=== PATIENT | female | born 1985 | race African-American/Black ===

== ENCOUNTER 2018-05-03 11:25 | Inpatient (IN) | payer MEDICARE, OTHER ==
[~2018-05-03] VITALS: Ht 165.1 cm; Wt 54.3 kg
[2018-05-03 11:32] VITALS: BP 119/78; PULSE 68; RESP 18; O2SAT 99
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
[2018-05-03] MEDS ORDERED: HALOPERIDOL LACTATE 5 MG/ML AMP IM ONE (12:15)
[2018-05-03 13:00] VITALS: BP 111/71; PULSE 78; RESP 20; TEMP 98.2; O2SAT 98
[2018-05-03 15:31] LABS: AUTOMATED NEUTROPHIL # 3.8 TH/MM3 (1.8-7.7); BASOPHIL % 0.3 % (0.0-2.0); EOSINOPHIL % 0.5 % (0.0-4.0); HEMATOCRIT 35.5 % (35.0-46.0); HEMOGLOBIN 11.5 GM/DL (11.6-15.3); LYMPH % 26.6 % (9.0-44.0); LYMPHOCYTE # 1.6 TH/MM3 (1.0-4.8); MEAN CELL VOLUME 93.5 FL (80.0-100.0); MEAN CORPUSCULAR HEMOGLOBIN 30.3 PG (27.0-34.0); MEAN CORPUSCULAR HGB CONC 32.4 % (32.0-36.0); MEAN PLATELET VOLUME 10.6 FL (7.0-11.0); MONO % 11.3 % (0.0-8.0); MONOCYTE # 0.7 TH/MM3 (0-0.9); NEUT % 61.3 % (16.0-70.0); PLATELET COUNT 176 TH/MM3 (150-450); RED CELL DISTRIBUTION WIDTH 13.5 % (11.6-17.2); WHITE BLOOD COUNT 6.1 TH/MM3 (4.0-11.0)
[2018-05-03 15:50] LABS: ALBUMIN 3.4 GM/DL (3.4-5.0); ALT (GPT) 23 U/L (10-53); AST (GOT) 29 U/L (15-37); BICARBONATE 22.5 MEQ/L (21.0-32.0); BLOOD UREA NITROGEN 27 MG/DL (7-18); CALCIUM 8.5 MG/DL (8.5-10.1); CHLORIDE 111 MEQ/L (98-107); GLOMERULAR FILTRATION RATE 70 ML/MIN (>89); GLUCOSE,RANDOM 82 MG/DL (74-106); SODIUM (NA) 143 MEQ/L (136-145)
[2018-05-03 16:01] LABS: ALKALINE PHOSPHATASE 64 U/L (45-117); TOTAL BILIRUBIN ADULT 0.3 MG/DL (0.2-1.0); TOTAL PROTEIN 7.3 GM/DL (6.4-8.2)
[2018-05-03 16:10] LABS: ACETAMINOPHEN LESS THAN 2.0 MCG/ML (10.0-30.0)
[2018-05-03] MEDS ORDERED: POTASSIUM CHLORIDE 10 MEQ CONTROLLED RELEASE TAB PO ONE (16:45)
[2018-05-03 18:00] VITALS: BP 105/73; PULSE 69; RESP 18
[2018-05-04 00:55] VITALS: BP 129/63; PULSE 80; RESP 16; TEMP 98.7; O2SAT 99
[2018-05-04 06:24] VITALS: BP_SYST 118; BP_SYST 130; BP_DIAS 62; BP_DIAS 81; PULSE 56; PULSE 70; RESP 16; TEMP 97.3; TEMP 97.6; O2SAT 98; O2SAT 99
[2018-05-04 11:00] VITALS: BP 125/79; PULSE 90; RESP 18; TEMP 97.9; O2SAT 96
--- NOTE | 2018-05-04 12:25 | PD ---
History of Present Illness Chief Complaint: Psychiatric Symptoms Time Seen by Provider: 11:50 Travel History International Travel<30 Days: No Contact w/Intl Traveler<30days: No Known affected area: No Legal Status Legal Status: Montes Act Montes Act Signed By: Stacey Villalpando Montes Act Comment: Officer Yuri Gracia #[id number] History of Present Illness: History of Present Illness HPI Patient is a 32-year-old female with reported hx of schizophrenia presenting to the emergency department under Montes act for psychiatric evaluation. Per the Montes act report "patient is bipolar, schizophrenic, she has been hallucinating and having delirium. Patient has been off of her medications for about a month, patient was found this morning eating her own feces" . XOCHILT Sullivan spoke with from patient's friend who reported she found the patient in a tub covered in dried feces. The patient upon arrival to [facility] has been yelling and responding to interna stimuli. She required ETO. This morning the patient required assistance from staff as she had urinated on herself. She is alert. Easily distracted. Responding to internal stimuli although she denies that she is hearing voices. She has lability of affect and starts laughing in the middle of our conversation. Her speech is fast. Non sensical and difficult to understand. PFSH Past Medical History Bipolar Disorder: Yes Schizophrenia: Yes ?: Unknown Psychiatric History Psychiatric History Hx Psychiatric Treatment: Unknown. Yanet has been seen at [facility] and last visit in June of 2017. History of Inpatient Treatment: Yes Guns or firearms in home: No Social History Unable to obtain. Hx Alcohol Use: No (unknown) Hx Tobacco Use: No Family Psychiatric History Unknown Allergies-Medications (Allergen,Severity, Reaction): Coded Allergies: No Known Allergies (Unverified , 05/03/18) Review of Systems ROS Limitations: Psychotic Mental Status Examination Appearance: Malodorous, Other (dirty.) Consciousness: Alert Orientation: Person Motor Activity: Normal gait Speech: Rapid Language: Echolalia Fund of Knowledge: Inadequate Attention and Concentration: Inadequate Memory: Unremarkable, Impaired Mood: Other (labile) Affect: Labile Thought Process & Associations: Disorganized Thought Content: Hallucinations Hallucination Type: Auditory Delusion Type: None Suicidal Ideation: No Suicidal Plan: No Suicidal Intention: No Homicidal Ideation: No Homicidal Plan: No Homicidal Intention: No Insight: Poor Judgment: Poor MDM Medical Decision Making Medical Record Reviewed: Yes Assessment/Plan 32 year old female with hx of schizophrenia brought in under a BA after she was found in a bathtub covered in feces and alleging that she was hallucinating and having delirium, as well as reported to have been off medication for a month. Patient presents with disorganized thoughts, actively responding to interna stimuli, lability of affect, and not caring for herself. At this time meets criteria for inpatient psychiatric treatment for safety, further evaluation and medication adjustment. Orders Orders Diet Regular Basic (05/03/18 Dinner) Potassium Chloride (Kcl) (05/03/18 16:45) Diet Regular Basic (05/04/18 Breakfast) Diet Regular Basic (05/04/18 Lunch) Ed Urine Pregnancytest Poc (05/04/18 11:47) Results Vital Signs Date Time Temp Pulse Resp B/P (MAP) Pulse Ox O2 Delivery O2 Flow Rate FiO2 05/04/18 06:24 97.6 70 16 118/62 (80) 98 Room Air 05/04/18 00:55 98.7 80 16 129/63 (85) 99 Room Air 05/03/18 18:00 69 18 105/73 (84) 05/03/18 13:00 98.2 78 20 111/71 (84) 98 Room Air Laboratory Tests Test 05/03/18 14:50 White Blood Count 6.1 Red Blood Count 3.80 Hemoglobin 11.5 Hematocrit 35.5 Mean Corpuscular Volume 93.5 Mean Corpuscular Hemoglobin 30.3 Mean Corpuscular Hemoglobin Concent 32.4 Red Cell Distribution Width 13.5 Platelet Count 176 Mean Platelet Volume 10.6 Neutrophils (%) (Auto) 61.3 Lymphocytes (%) (Auto) 26.6 Monocytes (%) (Auto) 11.3 Eosinophils (%) (Auto) 0.5 Basophils (%) (Auto) 0.3 Neutrophils # (Auto) 3.8 Lymphocytes # (Auto) 1.6 Monocytes # (Auto) 0.7 Eosinophils # (Auto) 0.0 Basophils # (Auto) 0.0 CBC Comment DIFF FINAL Differential Comment Blood Urea Nitrogen 27 Creatinine 1.10 Random Glucose 82 Total Protein 7.3 Albumin 3.4 Calcium Level 8.5 Alkaline Phosphatase 64 Aspartate Amino Transf (AST/SGOT) 29 Alanine Aminotransferase (ALT/SGPT) 23 Total Bilirubin 0.3 Sodium Level 143 Potassium Level 3.2 Chloride Level 111 Carbon Dioxide Level 22.5 Anion Gap 10 Estimat Glomerular Filtration Rate 70 Thyroid Stimulating Hormone 3rd Gen 2.720 Salicylates Level LESS THAN 1.7 Acetaminophen Level LESS THAN 2.0 Ethyl Alcohol Level LESS THAN 3 Diagnosis Primary Impression: Medical clearance for psychiatric admission Additional Impression: Schizophrenia Admitting Information Admitting Physician Requests: Admit Condition: Stable Problem Qualifiers Additional Impression: Schizophrenia Qualified Codes: F20.9 - Schizophrenia, unspecified Conchita Saucedo [facility] May 04, 2018 12:25
[2018-05-04] MEDS ORDERED: ALUMINUM/MAGNESIUM/SIMETH 30 ML CUP PO PRN (12:30)
[2018-05-04] MEDS ORDERED: MAGNESIUM HYDROXIDE SUSP 30 ML CUP PO PRN (12:30)
[2018-05-04] MEDS ORDERED: ACETAMINOPHEN 325 MG TAB PO PRN (12:30)
[2018-05-04 15:02] VITALS: BP 118/75; PULSE 82; RESP 16; TEMP 98.2; O2SAT 99
[2018-05-05 06:04] VITALS: BP 111/72; PULSE 81; RESP 16; TEMP 98.1; O2SAT 98
--- NOTE | 2018-05-05 08:54 | HHI.HP ---
Provisional Diagnosis Admission Date May 04, 2018 at 12:28 [place] I. 1. Schizophrenia, disorganized type, acute exacerbation Rule out catatonia [place] II. 1. Intellectual disability Certification of Person's Competence To Provide Express and Informed Consent I have personally examined Bela Pérez , a person being served at [facility] on, May 05, 2018 08:54. Express and informed consent means consent voluntarily given in writing, by a competent person, after sufficient explanation and disclosure of the subject matter involved to enable the person to make a knowing and willful decision without any element of force, fraud, deceit, duress, or other form of constraint or coercion. This person is 18 years of age or older, is not now known to be incompetent to consent to treatment with a guardian advocate, and does not have a health care surrogate or proxy currently making medical treatment decisions. I have found this person to be one of the following: [] Competent to provide express and informed consent, as defined above, for voluntary admission to this facility and is competent to provide express and informed consent for treatment. He/she has the consistent capacity to make well reasoned, willful, and knowing decisions concerning his or her medical or mental health treatment. The person fully and consistently understands the purpose of the admission for examination/placement and is fully capable of personally exercising all rights [place] [x] Incompetent to provide express and informed consent to voluntary admission, and this is incompetent to provide express and informed consent to treatment. The person must be transferred to involuntary status and a petition for a guardian advocate filed with the Circuit Court. [] Refusing to provide express and informed consent to voluntary admission but is competent to provide express and informed consent for treatment. The person must be discharged or transferred to involuntary status. Form shall be completed within 24 hours of a person's arrival at the receiving facility and filed in the clinical record of each person: 1. Admitted on a voluntary basis 2. Permitted to provide express and informed consent to his/her own treatment 3. Allowed to transfer from involuntary to voluntary status 4. Prior to permitting a person to consent to his or her own treatment after having been previously found incompetent to consent to treatment. History of Present Illness Capacity: Lacks Capacity Psych Chief Complaint: Disorganization, self-care deficit HPI Ms. Pérez is a 32-year-old female with a history of schizophrenia and intellectual disability who presents under a Montes act by law enforcement alleging that the patient has been nonadherent with psychotropic medications and was found eating her own feces. Reviewing the electronic medical record, I note that the patient has another record under the name Teresa Pérez (same ). In this record, patient was admitted under Dr. Knight in January, and was on Haldol and Abilify at that time. Patient seen and examined with nurse. Chart reviewed. Case discussed with nursing staff who reports patient slept poorly overnight and has been internally stimulated, rocking in her room. On my examination today, patient is mute. She follows commands but will not engage in verbal interview. She does exhibit some posturing but no stereotypies. She is able to nod head yes or no to some questions. She denies AH but is non-committal about VH. Likewise , she denies SI but does not respond when I ask about HI. Psychiatric interview is quite limited because of patient's current mental state. I am unable to obtain any meaningful past psychiatric, family, chemical dependency or social history for the same reason. Patient appears to be in no acute physical distress. Endeavored to obtain collateral from brother Austin Lee at [phone] (left generic requesting a call back) and at [phone] (seems to be a wrong number as VM is for completely different person). Also endeavored to obtain collateral from sister Jef at [phone] (VM not set up). Called over to [facility] to obtain most recent med list. As of June 2017 (last available): Haldol 10mg BID Artane 5mg BID Review of Systems ROS Limitations: Psychotic, Poor Historian, Other (mute) Other Limited ROS secondary to above Past Family Social History Coded Allergies: No Known Allergies (Unverified , 05/03/18) Past Medical History See electronic medical record Current Medications Medications (Trade) Dose Ordered Sig/Hardy Route Start Time Stop Time Status Last Admin (Tylenol) 650 mg Q4H PRN PO 05/04/18 12:30 (Milk Of Magnesia Liq) 30 ml DAILY PRN PO 05/04/18 12:30 (Mag-Al Plus Susp Liq) 30 ml Q6H PRN PO 05/04/18 12:30 Patient's Strengths (min. 2) In a monitored setting. Retains some communication ability. Physical Exam Physical exam completed by ED provider. On my examination today, the patient appears to be in no acute physical distress. She does exhibit some posturing and is mute but no other signs of catatonia. No other motor abnormalities noted. Labs and vital signs reviewed: Vital Signs Vital Signs Date Time Temp Pulse Resp B/P (MAP) Pulse Ox O2 Delivery O2 Flow Rate FiO2 05/05/18 06:04 98.1 81 16 111/72 (85) 98 05/04/18 11:00 Room Air Lab Results Item Value Date Time White Blood Count 6.1 TH/MM3 05/03/18 1450 Hemoglobin 11.5 GM/DL L 05/03/18 1450 Platelet Count 176 TH/MM3 05/03/18 1450 Sodium Level 143 MEQ/L 05/03/18 1450 Potassium Level 3.2 MEQ/L L 05/03/18 1450 Chloride Level 111 MEQ/L H 05/03/18 1450 Carbon Dioxide Level 22.5 MEQ/L 05/03/18 1450 Anion Gap 10 MEQ/L 05/03/18 1450 Blood Urea Nitrogen 27 MG/DL H 05/03/18 1450 Creatinine 1.10 MG/DL H 05/03/18 1450 Estimat Glomerular Filtration Rate 70 ML/MIN L 05/03/18 1450 Aspartate Amino Transf (AST/SGOT) 29 U/L 05/03/18 1450 Alanine Aminotransferase (ALT/SGPT) 23 U/L 05/03/18 1450 Thyroid Stimulating Hormone 3rd Gen 2.720 uIU/ML 05/03/18 1450 Alkaline Phosphatase 64 U/L 05/03/18 1450 Ethyl Alcohol Level LESS THAN 3 MG/DL 05/03/18 1450 Mild normocytic anemia noted. Hypokalemia noted. Decreased GFR noted. ED point of care test was negative. EKG NSR QTc 400ms. Mental Status Examination Appearance: Disheveled Consciousness: Alert Motor Activity: Other (Motor exam as above) Speech: Other (Mute) Affect: Other (Appears dysphoric) Hallucination Type: Auditory (Denies), Visual (Noncommittal) Suicidal Ideation: No Insight: Poor Judgment: Poor Mental Status Exam Remarks MSE quite limited as patient is mute. Assessment & Plan Problem List: (1) Schizophrenia ICD Codes: F20.9 - Schizophrenia, unspecified Status: Acute (2) Intellectual disability ICD Codes: F79 - Unspecified intellectual disabilities Assessment & Plan 32-year-old female with psychiatric history as detailed above who presents under Montes act. On my examination today, the patient is mute and exhibits some posturing. Montes act alleges medication nonadherence. Differential diagnosis would include severe decompensated disorganized schizophrenia versus catatonic state. Patient exhibits obvious self-care deficit and requires psychiatric hospitalization for safety, observation and stabilization. Admit inpatient. Involuntary status. I have completed first opinion. Consult for second opinion. Request healthcare surrogate and guardian advocate. Scheduled psychotropics cannot be ordered at this time as we have no available healthcare surrogate. I will order Ativan 2mg IM once for possible catatonia and reassess patient. Monitor PO intake; I&Os. Check CBC, BMP, CK, HgbA1c, lipid panel. Vitals every shift. Counselor to see. Collateral information. Disposition planning. Estimated length of stay: 10-14 days. Discharge Planning Pending psychiatric stabilization Request HC Surrog/Guard Advoc?: Yes Problem Qualifiers (1) Schizophrenia: Qualified Codes: F20.1 - Disorganized schizophrenia Dwaine Garcia MD May 05, 2018 08:54
[2018-05-05] MEDS ORDERED: LORazepam 2 MG/ML VIAL IM ONE (14:15)
--- NOTE | 2018-05-05 15:16 | EKG ---
Date Performed: 05/05/2018 Time Performed: 10:56:50 PTAGE: 32 years EKG: Sinus rhythm NORMAL ECG NO PREVIOUS TRACING DOCTOR: Marion Elizondo Interpretating Date/Time 05/05/2018 15:15:33
[2018-05-05 18:06] VITALS: BP 115/64; PULSE 70; RESP 17; TEMP 97.7; O2SAT 99
[2018-05-06 05:42] VITALS: BP 102/70; PULSE 72; RESP 16; TEMP 97.9; O2SAT 100
[2018-05-06 09:16] LABS: BASOPHIL % 0.4 % (0.0-2.0); EOSINOPHIL # 0.1 TH/MM3 (0-0.4); EOSINOPHIL % 1.5 % (0.0-4.0); HEMATOCRIT 39.2 % (35.0-46.0); HEMOGLOBIN 12.7 GM/DL (11.6-15.3); LYMPH % 25.6 % (9.0-44.0); LYMPHOCYTE # 1.2 TH/MM3 (1.0-4.8); MEAN CELL VOLUME 92.9 FL (80.0-100.0); MEAN CORPUSCULAR HEMOGLOBIN 30.1 PG (27.0-34.0); MEAN CORPUSCULAR HGB CONC 32.4 % (32.0-36.0); MEAN PLATELET VOLUME 10.2 FL (7.0-11.0); MONO % 9.9 % (0.0-8.0); MONOCYTE # 0.5 TH/MM3 (0-0.9); NEUT % 62.6 % (16.0-70.0); PLATELET COUNT 188 TH/MM3 (150-450); RED BLOOD COUNT 4.22 MIL/MM3 (4.00-5.30); RED CELL DISTRIBUTION WIDTH 13.7 % (11.6-17.2); WHITE BLOOD COUNT 4.9 TH/MM3 (4.0-11.0)
[2018-05-06 09:53] LABS: BICARBONATE 28.4 MEQ/L (21.0-32.0); BLOOD UREA NITROGEN 18 MG/DL (7-18); CALCIUM 8.6 MG/DL (8.5-10.1); CHLORIDE 109 MEQ/L (98-107); CHOLESTEROL 128 MG/DL (120-200); CHOLESTEROL/ HDL RATIO 2.03 RATIO; CREATININE 0.92 MG/DL (0.50-1.00); GLOMERULAR FILTRATION RATE 86 ML/MIN (>89); GLUCOSE,RANDOM 77 MG/DL (74-106); HDL CHOLESTEROL 62.9 MG/DL (40.0-60.0); LDL CHOLESTEROL 50 MG/DL (0-99); SODIUM (NA) 145 MEQ/L (136-145); TRIGLYCERIDES 78 MG/DL (42-150)
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
--- NOTE | 2018-05-06 13:05 | PD.PSY.CON ---
Provisional Diagnosis Admission Date May 04, 2018 at 12:28 [place] I. 1. Schizophrenia, disorganized type, acute exacerbation Rule out catatonia [place] II. 1. Intellectual disability History of Present Illness Service Psychiatry Consult Requested By Psychiatry Reason for Consult Second opinion Primary Care Physician Unknown HPI Ms. Pérez is a 32-year-old female with a history of schizophrenia and intellectual disability who presents under a [place] act by law enforcement alleging that the patient has been nonadherent with psychotropic medications and was found eating her own feces. Reviewing the electronic medical record, I note that the patient has another record under the name Teresa Pérez (same ). In this record, patient was admitted under Dr. Knight in January, and was on Haldol and Abilify at that time.Patient seen and examined with nurse. Chart reviewed. Case discussed with nursing staff who reports patient slept poorly overnight and has been internally stimulated, rocking in her room. On my examination today, patient is mute. She follows commands but will not engage in verbal interview. She does exhibit some posturing but no stereotypies. She is able to nod head yes or no to some questions. She denies AH but is non-committal about VH. Likewise, she denies SI but does not respond when I ask about HI. Psychiatric interview is quite limited because of patient' s current mental state. I am unable to obtain any meaningful past psychiatric, family, chemical dependency or social history for the same reason. Patient appears to be in no acute physical distress. The patient is a 32-year-old -[place] woman, domiciled in [facility], single, mother of 1 kid, unemployed, with psychiatric history of schizophrenia, no significant medical history, she denies the use of illegal drugs and alcohol , consulted to me for second opinion. Psychiatric evaluation I find the patient in the recreational area of the unit. The patient is poorly cooperative , malodorous, disheveled, answering to my questions with monosyllables. The patient does report that she wants to feel better, but she does not have an insight of her psychiatric illness, she does not know what is the reason of her hospitalization. She denies suicidal enemas ideation, she denies visual and auditory hallucinations. During the evaluation the patient also presents very childish and concrete. Review of Systems Except as stated in HPI: all other systems reviewed are Neg Past Family Social History Coded Allergies: No Known Allergies (Unverified , 05/03/18) Current Medications Medications (Trade) Dose Ordered Sig/Hardy Route Start Time Stop Time Status Last Admin (Tylenol) 650 mg Q4H PRN PO 05/04/18 12:30 (Milk Of Magnesia Liq) 30 ml DAILY PRN PO 05/04/18 12:30 (Mag-Al Plus Susp Liq) 30 ml Q6H PRN PO 05/04/18 12:30 Patient's Strengths (min. 2) In a monitored setting. Retains some communication ability. Physical Exam Vital Signs Vital Signs Date Time Temp Pulse Resp B/P (MAP) Pulse Ox O2 Delivery O2 Flow Rate FiO2 05/06/18 05:42 97.9 72 16 102/70 (81) 100 05/04/18 11:00 Room Air Lab Results Test 05/06/18 08:46 White Blood Count 4.9 TH/MM3 Red Blood Count 4.22 MIL/MM3 Hemoglobin 12.7 GM/DL Hematocrit 39.2 % Mean Corpuscular Volume 92.9 FL Mean Corpuscular Hemoglobin 30.1 PG Mean Corpuscular Hemoglobin Concent 32.4 % Red Cell Distribution Width 13.7 % Platelet Count 188 TH/MM3 Mean Platelet Volume 10.2 FL Neutrophils (%) (Auto) 62.6 % Lymphocytes (%) (Auto) 25.6 % Monocytes (%) (Auto) 9.9 % Eosinophils (%) (Auto) 1.5 % Basophils (%) (Auto) 0.4 % Neutrophils # (Auto) 3.0 TH/MM3 Lymphocytes # (Auto) 1.2 TH/MM3 Monocytes # (Auto) 0.5 TH/MM3 Eosinophils # (Auto) 0.1 TH/MM3 Basophils # (Auto) 0.0 TH/MM3 CBC Comment DIFF FINAL Differential Comment Blood Urea Nitrogen 18 MG/DL Creatinine 0.92 MG/DL Random Glucose 77 MG/DL Calcium Level 8.6 MG/DL Sodium Level 145 MEQ/L Potassium Level 4.1 MEQ/L Chloride Level 109 MEQ/L Carbon Dioxide Level 28.4 MEQ/L Anion Gap 8 MEQ/L Estimat Glomerular Filtration Rate 86 ML/MIN Total Creatine Kinase 489 U/L Creatine Kinase MB 3.0 NG/ML Creatine Kinase MB % 0.6 % Triglycerides Level 78 MG/DL Cholesterol Level 128 MG/DL LDL Cholesterol 50 MG/DL HDL Cholesterol 62.9 MG/DL Cholesterol/HDL Ratio 2.03 RATIO Mental Status Examination Appearance: Disheveled Consciousness: Alert Motor Activity: Other (Motor exam as above) Speech: Other (Mute) Affect: Other (Appears dysphoric) Hallucination Type: Auditory (Denies), Visual (Noncommittal) Suicidal Ideation: No Insight: Poor Judgment: Poor Assessment & Plan Problem List: (1) Schizophrenia ICD Codes: F20.9 - Schizophrenia, unspecified Status: Acute Assessment & Plan: I have seen and examined the patient, review documentation, I agree and concur with Dr. Garcia assessment and plan. Consult appreciated. (2) Intellectual disability ICD Codes: F79 - Unspecified intellectual disabilities Assessment & Plan Estimated LOS: days Request HC Surrog/Guard Advoc?: Yes Problem Qualifiers (1) Schizophrenia: Qualified Codes: F20.1 - Disorganized schizophrenia Dg Clark MD May 06, 2018 13:05
[2018-05-06 16:07] LABS: HEMOGLOBIN A1C 5.6 % (4.3-6.0)
[2018-05-06 18:05] VITALS: BP 112/64; PULSE 91; RESP 17; TEMP 98; O2SAT 99
[2018-05-06] MEDS: HALOPERIDOL 10 MG TAB PO SCH (20:45)
[2018-05-06] MEDS: TRIHEXYPHENIDYL HCL 5 MG TAB PO SCH (20:45)
[2018-05-06] MEDS ORDERED: HALOPERIDOL LACTATE 5 MG/ML AMP IM PRN (21:00)
[2018-05-07] MEDS: HALOPERIDOL 10 MG TAB PO SCH ×2 (09:20→21:30)
[2018-05-07] MEDS: TRIHEXYPHENIDYL HCL 5 MG TAB PO SCH ×2 (10:52→21:30)
--- NOTE | 2018-05-07 12:44 | HHI.PYPN ---
Subjective Chief Complaint: Disorganization, self-care deficit Remarks Pt seen and discussed with staff. She is observed laughing inappropriately and responding to internal stimuli. Yesterday evening she was agitated and required oral ativan to calm down. Though process is disorganized . She continues to engage in bizarre behavior and was found sleeping on floor and pillowcase had stains suspicious for feces. She was able to dress self without assistance today which is an improvement She is compliant with medications and denies side effects. No cogwheeling or EPS Mental Status Examination Appearance: Disheveled Consciousness: Alert Orientation: Person Motor Activity: Other (No motor abnormalities noted) Speech: Hesitant, Other (Repetitive) Fund of Knowledge: Inadequate Attention and Concentration: Inadequate Memory: Impaired Mood: Good Affect: Other (Childlike) Thought Process & Associations: Disorganized Thought Content: Hallucinations Hallucination Type: Other (Internally stimulated) Suicidal Ideation: No Homicidal Ideation: No Insight: Poor Judgment: Poor Results Vitals/IOs Vital Signs Date Time Temp Pulse Resp B/P (MAP) Pulse Ox O2 Delivery O2 Flow Rate FiO2 05/06/18 18:05 98.0 91 17 112/64 (80) 99 05/04/18 11:00 Room Air Assessment & Plan Problem List: (1) Schizophrenia ICD Codes: F20.9 - Schizophrenia, unspecified Status: Acute (2) Intellectual disability ICD Codes: F79 - Unspecified intellectual disabilities Assessment & Plan Continue current tx plan. Estimated LOS: days Justification for Cont. Inpt. impairments in self care and reality testing Request HC Surrog/Guard Advoc?: Yes Problem Qualifiers (1) Schizophrenia: Qualified Codes: F20.1 - Disorganized schizophrenia Anabel Clements MD May 07, 2018 12:44
[2018-05-07 17:45] VITALS: BP 112/56; PULSE 67; RESP 17; TEMP 97.6; O2SAT 97
[2018-05-07] MEDS: LORazepam 0.5 MG TAB PO PRN (18:03)
[2018-05-07] MEDS: diphenhydrAMINE HCL 50 MG CAP PO PRN (21:30)
[2018-05-08 06:48] VITALS: BP 107/61; PULSE 60; RESP 16; TEMP 98.3; O2SAT 98
[2018-05-08] MEDS: HALOPERIDOL 10 MG TAB PO SCH ×2 (09:00→21:42)
[2018-05-08] MEDS: TRIHEXYPHENIDYL HCL 5 MG TAB PO SCH ×2 (09:00→21:42)
[2018-05-08] MEDS: LORazepam 0.5 MG TAB PO PRN (13:04)
--- NOTE | 2018-05-08 15:17 | HHI.PYPN ---
Subjective Chief Complaint: Disorganization, self-care deficit Remarks Pt seen and discussed with staff. She remains disorganized but did eat meals and showered today. She has been arguing with unseen entities. She is compliant with meds. She denies SI/HI. "no way man" Mental Status Examination Appearance: Disheveled Consciousness: Alert Orientation: Person Motor Activity: Other (No motor abnormalities noted) Speech: Hesitant, Other (Repetitive) Fund of Knowledge: Inadequate Attention and Concentration: Inadequate Memory: Impaired Mood: Good Affect: Other (Childlike) Thought Process & Associations: Disorganized Thought Content: Hallucinations Hallucination Type: Other (Internally stimulated) Suicidal Ideation: No Homicidal Ideation: No Insight: Poor Judgment: Poor Results Vitals/IOs Vital Signs Date Time Temp Pulse Resp B/P (MAP) Pulse Ox O2 Delivery O2 Flow Rate FiO2 05/08/18 06:48 98.3 60 16 107/61 (76) 98 05/04/18 11:00 Room Air Assessment & Plan Problem List: (1) Schizophrenia ICD Codes: F20.9 - Schizophrenia, unspecified Status: Acute (2) Intellectual disability ICD Codes: F79 - Unspecified intellectual disabilities Assessment & Plan Continue current tx plan. Estimated LOS: days Justification for Cont. Inpt. psychosis and self care deficits Request HC Surrog/Guard Advoc?: Yes Problem Qualifiers (1) Schizophrenia: Qualified Codes: F20.1 - Disorganized schizophrenia Anabel Clements MD May 08, 2018 15:17
[2018-05-08 17:50] VITALS: BP 122/71; PULSE 97; RESP 17; TEMP 98.2; O2SAT 98
[2018-05-09 06:42] VITALS: BP 109/54; PULSE 91; RESP 19; TEMP 97.6; O2SAT 100
[2018-05-09] MEDS: TRIHEXYPHENIDYL HCL 5 MG TAB PO SCH ×2 (09:13→20:57)
[2018-05-09] MEDS: HALOPERIDOL 10 MG TAB PO SCH (09:13)
[2018-05-09] MEDS: LORazepam 0.5 MG TAB PO PRN (11:26)
--- NOTE | 2018-05-09 11:30 | HHI.PYPN ---
Subjective Chief Complaint: Disorganization, self-care deficit Remarks Patient seen and case discussed with nursing staff. Chart reviewed. Patient remains childlike, rocking in chair the day room. She is internally stimulated. She remains fairly disheveled. No evident side effects from medications. No evident physical distress. Becomes quite agitated, it seems in response to internal stimulation, yelling and stalking around the unit. I have ordered patient medicated with Haldol, Ativan and Benadryl ETO. Review of Systems ROS Limitations: Poor Historian Other Limited ROS Mental Status Examination Appearance: Disheveled Consciousness: Alert Orientation: Person Motor Activity: Other (No motor abnormalities noted) Speech: Other (Repetitive) Language: Other (Rambling) Fund of Knowledge: Inadequate Attention and Concentration: Inadequate Memory: Impaired Mood: Other (Childlike) Affect: Labile Thought Process & Associations: Disorganized Thought Content: Hallucinations Hallucination Type: Other (Remains internally stimulated) Suicidal Ideation: No Homicidal Ideation: No Insight: Poor Judgment: Poor Results Labs Labs reviewed. CK elevation noted. Vitals/IOs Vital Signs Date Time Temp Pulse Resp B/P (MAP) Pulse Ox O2 Delivery O2 Flow Rate FiO2 05/09/18 06:42 97.6 91 19 109/54 (72) 100 Assessment & Plan Problem List: (1) Schizophrenia ICD Codes: F20.9 - Schizophrenia, unspecified Status: Acute (2) Intellectual disability ICD Codes: F79 - Unspecified intellectual disabilities Assessment & Plan Titrate Haldol to 15 mg twice daily to target ongoing psychotic symptoms. Continue Artane as ordered. Encourage fluids and check BMP and CK in the morning. Continue to monitor on the high acuity unit. Continue other medications and care as ordered. Justification for Cont. Inpt. Med changes. Impairment in reality construction. High risk for decompensation in less restrictive environment. Discharge Planning Counselor working with DCF towards placement for patient. Request HC Surrog/Guard Advoc?: Yes Problem Qualifiers (1) Schizophrenia: Qualified Codes: F20.1 - Disorganized schizophrenia Dwaine Garcia MD May 09, 2018 11:30
[2018-05-09] MEDS ORDERED: HALOPERIDOL LACTATE 5 MG/ML AMP ONE (12:02)
[2018-05-09] MEDS ORDERED: diphenhydrAMINE HCL 50 MG/ML VIAL ONE (12:02)
[2018-05-09] MEDS ORDERED: LORazepam 2 MG/ML VIAL ONE (12:04)
[2018-05-09] MEDS ORDERED: HALOPERIDOL LACTATE 5 MG/ML AMP IM ONE (12:30)
[2018-05-09] MEDS ORDERED: diphenhydrAMINE HCL 50 MG/ML VIAL IM ONE (12:30)
[2018-05-09] MEDS ORDERED: LORazepam 2 MG/ML VIAL IM ONE (12:30)
[2018-05-09 18:00] VITALS: BP 118/77; PULSE 108; RESP 19; TEMP 97.6; O2SAT 99
[2018-05-09] MEDS: HALOPERIDOL 5 MG TAB PO SCH (20:57)
[2018-05-10 06:25] VITALS: BP 92/56; PULSE 86; RESP 16; TEMP 98.2; O2SAT 100
[2018-05-10] MEDS: HALOPERIDOL 5 MG TAB PO SCH ×2 (09:02→20:14)
[2018-05-10] MEDS: TRIHEXYPHENIDYL HCL 5 MG TAB PO SCH ×2 (09:02→20:14)
--- NOTE | 2018-05-10 13:02 | HHI.PYPN ---
Subjective Chief Complaint: Disorganization, self-care deficit Remarks Patient seen and examined with nurse. Chart reviewed. Nutritional records indicate patient is eating well. Case discussed with nursing staff. Per nursing, patient remains quite disorganized and requires assistance even with basic hygiene. Patient seems a little better on my examination today. She is able to say "I am feeling good because I am on my meds." She is in better spirits today versus yesterday. She denies any auditory hallucinations. She remains quite childlike. No side effects from medications. No physical complaints. Review of Systems Except as stated in HPI: all other systems reviewed are Neg Mental Status Examination Appearance: Disheveled Consciousness: Alert Orientation: Person Motor Activity: Other (No abnormal motor movements noted) Speech: Other (Repetitive) Language: Other (Remains a little rambling) Fund of Knowledge: Inadequate Attention and Concentration: Inadequate Memory: Impaired Mood: Other (Childlike) Affect: Euthymic Thought Process & Associations: Disorganized Thought Content: Hallucinations Hallucination Type: Other (Somewhat internally preoccupied but denies AH) Delusion Type: None Suicidal Ideation: No Homicidal Ideation: No Insight: Poor Judgment: Poor Results Labs Labs reviewed. No new labs. I have requested nurse have the navy seal come and draw the laboratories I ordered for this morning. Vitals/IOs Vital Signs Date Time Temp Pulse Resp B/P (MAP) Pulse Ox O2 Delivery O2 Flow Rate FiO2 05/10/18 06:25 98.2 86 16 92/56 (68) 100 Assessment & Plan Problem List: (1) Schizophrenia ICD Codes: F20.9 - Schizophrenia, unspecified Status: Acute (2) Intellectual disability ICD Codes: F79 - Unspecified intellectual disabilities Assessment & Plan Patient slowly improving, although baseline is unclear. Continue Haldol and Artane as ordered. To consider further titration of the Haldol. To consider long-acting injectable Haldol Decanoate. Continue to monitor on the high acuity unit. Follow-up laboratories. Continue other medications and care as ordered. Justification for Cont. Inpt. High risk for decompensation in less restrictive environment. Impairment in self-care. Impairment in reality construction. Discharge Planning Placement. Request HC Surrog/Guard Advoc?: Yes Problem Qualifiers (1) Schizophrenia: Qualified Codes: F20.1 - Disorganized schizophrenia Dwaine Garcia MD May 10, 2018 13:02
[2018-05-10] MEDS: LORazepam 0.5 MG TAB PO PRN (15:32)
[2018-05-10 17:00] VITALS: BP 97/54; PULSE 95; RESP 18; TEMP 98.1; O2SAT 100
[2018-05-10] MEDS: diphenhydrAMINE HCL 50 MG CAP PO PRN (20:14)
[2018-05-11 05:44] VITALS: BP 101/54; PULSE 74; RESP 20; TEMP 97.8; O2SAT 100
[2018-05-11] MEDS: TRIHEXYPHENIDYL HCL 5 MG TAB PO SCH ×2 (08:11→20:20)
[2018-05-11] MEDS: HALOPERIDOL 5 MG TAB PO SCH ×2 (08:11→20:18)
[2018-05-11] MEDS: LORazepam 0.5 MG TAB PO PRN ×2 (08:12→20:18)
--- NOTE | 2018-05-11 10:07 | HHI.PYPN ---
Subjective Chief Complaint: Disorganization, self-care deficit Remarks Patient seen and examined with nurse. Chart reviewed. Case discussed with nursing staff who reports patient grew upset this morning after she had to be showered because she was incontinent of urine. She was yelling out but was not reportedly physically aggressive. Case discussed with counselor who continues to work on placement for this patient. On my examination today, the patient remains quite childlike. She says "I am feeling good today." Denies side effects from medications. No physical complaints. Review of Systems ROS Limitations: Poor Historian Except as stated in HPI: all other systems reviewed are Neg Mental Status Examination Appearance: Disheveled Consciousness: Alert Orientation: Person Motor Activity: Other (No motor abnormalities noted) Speech: Other (Limited language skills) Language: Other (Rambling) Fund of Knowledge: Inadequate Attention and Concentration: Inadequate Memory: Impaired Mood: Other (Childlike) Affect: Euthymic Thought Process & Associations: Other (Somewhat less disorganized today) Thought Content: Hallucinations Hallucination Type: None Delusion Type: None Suicidal Ideation: No (No SI voiced) Homicidal Ideation: No (No HI voiced) Insight: Poor Judgment: Poor Results Labs Labs reviewed. Per nursing staff, poultry dressing worker is struggling to draw laboratories. I have asked the nurse to have poultry dressing worker continue to try. Vitals/IOs Vital Signs Date Time Temp Pulse Resp B/P (MAP) Pulse Ox O2 Delivery O2 Flow Rate FiO2 05/11/18 05:44 97.8 74 20 101/54 (70) 100 Assessment & Plan Problem List: (1) Schizophrenia ICD Codes: F20.9 - Schizophrenia, unspecified Status: Acute (2) Intellectual disability ICD Codes: F79 - Unspecified intellectual disabilities Assessment & Plan Continue current psychotropics as ordered. Patient does seem to be improving with the Haldol. To consider further titration of this agent and to consider initiation of a long-acting injectable. Continue to monitor on the inpatient unit. Continue other medications and care as ordered. Justification for Cont. Inpt. High risk for decompensation and less restrictive environment. Impairment in self-care. Discharge Planning Counselor is working on placement for this patient. Request HC Surrog/Guard Advoc?: Yes Problem Qualifiers (1) Schizophrenia: Qualified Codes: F20.1 - Disorganized schizophrenia Dwaine Garcia MD May 11, 2018 10:07
[2018-05-11 16:06] VITALS: BP 104/53; PULSE 109; RESP 18; TEMP 98.3; O2SAT 100
[2018-05-11] MEDS: diphenhydrAMINE HCL 50 MG CAP PO PRN (20:18)
[2018-05-12 06:05] VITALS: BP 134/73; PULSE 90; RESP 16; TEMP 97.9; O2SAT 96
[2018-05-12] MEDS: HALOPERIDOL 5 MG TAB PO SCH ×2 (07:52→20:44)
[2018-05-12] MEDS: TRIHEXYPHENIDYL HCL 5 MG TAB PO SCH ×2 (07:53→20:44)
[2018-05-12 08:09] LABS: BICARBONATE 28.6 MEQ/L (21.0-32.0); CREATININE 1.06 MG/DL (0.50-1.00)
--- NOTE | 2018-05-12 11:19 | HHI.PYPN ---
Subjective Chief Complaint: Disorganization, self-care deficit Remarks Patient seen and case discussed with nursing staff. Chart reviewed. For me today, patient generally euthymic, some calling out. Remains quite childlike. No side effects from medications. No physical complaints. Patient's case was presented to [place], and the patient was retained on the unit by the stable cleaner with sister to serve as guardian advocate. Review of Systems Except as stated in HPI: all other systems reviewed are Neg Mental Status Examination Appearance: Disheveled Consciousness: Alert Orientation: Person Motor Activity: Other (No abnormal motor movements noted) Speech: Other (Limited language skills) Language: Other (Fairly rambling and repetitive) Fund of Knowledge: Inadequate Attention and Concentration: Inadequate Memory: Impaired Mood: Other (Childlike) Affect: Euthymic Thought Process & Associations: Other (Moderately disorganized) Thought Content: Preoccupations Hallucination Type: None Delusion Type: None Suicidal Ideation: No (No SI voiced) Homicidal Ideation: No (No HI voiced) Insight: Poor Judgment: Poor Results Labs Test 05/12/18 07:01 Blood Urea Nitrogen 28 MG/DL Creatinine 1.06 MG/DL Random Glucose 82 MG/DL Calcium Level 9.0 MG/DL Sodium Level 140 MEQ/L Potassium Level 4.8 MEQ/L Chloride Level 105 MEQ/L Carbon Dioxide Level 28.6 MEQ/L Anion Gap 6 MEQ/L Estimat Glomerular Filtration Rate 73 ML/MIN Total Creatine Kinase 160 U/L Labs reviewed. CK normalized. GFR noted. Vitals/IOs Vital Signs Date Time Temp Pulse Resp B/P (MAP) Pulse Ox O2 Delivery O2 Flow Rate FiO2 05/12/18 06:05 97.9 90 16 134/73 (93) 96 Assessment & Plan Problem List: (1) Schizophrenia ICD Codes: F20.9 - Schizophrenia, unspecified Status: Acute (2) Intellectual disability ICD Codes: F79 - Unspecified intellectual disabilities Assessment & Plan Continue current psychotropics as ordered. Continue to monitor on the inpatient unit. Continue other medications and care as ordered. Justification for Cont. Inpt. Risk for decompensation in less restrictive environment. Discharge Planning Placement. Case discussed with counselor. Request HC Surrog/Guard Advoc?: Yes Problem Qualifiers (1) Schizophrenia: Qualified Codes: F20.1 - Disorganized schizophrenia Dwaine Garcia MD May 12, 2018 11:19
[2018-05-12] MEDS: diphenhydrAMINE HCL 50 MG CAP PO PRN (20:44)
[2018-05-13 06:24] VITALS: BP 107/56; PULSE 88; RESP 18; TEMP 97.9; O2SAT 98
[2018-05-13] MEDS: TRIHEXYPHENIDYL HCL 5 MG TAB PO SCH ×2 (09:10→20:58)
[2018-05-13] MEDS: HALOPERIDOL 5 MG TAB PO SCH ×2 (09:10→20:58)
--- NOTE | 2018-05-13 09:24 | HHI.PYPN ---
Subjective Chief Complaint: Disorganization, self-care deficit Remarks Patient seen and examined with nurse. Chart reviewed. Case discussed with nursing staff who reports patient remains labile at times and childlike. Case discussed in treatment team. On my examination today, patient is lying calmly in bed. She is able to answer a few simple questions in a sensible fashion. Remains quite limited with respect to language skills. No side effects from medications. No physical complaints. I was notified by the nurse in the early afternoon that the patient was experiencing agitation. I have ordered her medicated with Haldol, Ativan and Benadryl ETO. Review of Systems ROS Limitations: Poor Historian Except as stated in HPI: all other systems reviewed are Neg Mental Status Examination Appearance: Disheveled Consciousness: Alert Orientation: Person Motor Activity: Other (No motoric abnormalities noted) Speech: Other (Limited language skills) Language: Other (Fairly rambling and repetitive) Fund of Knowledge: Inadequate Attention and Concentration: Inadequate Memory: Impaired Mood: Other (Childlike) Affect: Euthymic Thought Process & Associations: Other (Ongoing moderate disorganization) Thought Content: Preoccupations Hallucination Type: None Delusion Type: None Suicidal Ideation: No (No SI voiced) Homicidal Ideation: No (No HI voiced) Insight: Poor Judgment: Poor Results Labs Labs reviewed. No new labs. Vitals/IOs Vital Signs Date Time Temp Pulse Resp B/P (MAP) Pulse Ox O2 Delivery O2 Flow Rate FiO2 05/13/18 06:24 97.9 88 18 107/56 (73) 98 Assessment & Plan Problem List: (1) Schizophrenia ICD Codes: F20.9 - Schizophrenia, unspecified Status: Acute (2) Intellectual disability ICD Codes: F79 - Unspecified intellectual disabilities Assessment & Plan I will add a midday dose of Haldol as patient seems to struggle around this time. Haldol 15/5/15mg. To consider long-acting injectable Haldol Decanoate. Continue to monitor on the inpatient unit. Continue other medications and care as ordered. Justification for Cont. Inpt. Medication changes. Risk for decompensation in less restrictive environment. Discharge Planning Placement Request HC Surrog/Guard Advoc?: Yes Problem Qualifiers (1) Schizophrenia: Qualified Codes: F20.1 - Disorganized schizophrenia Dwaine Garcia MD May 13, 2018 09:24
--- NOTE | 2018-05-13 09:38 | PD.TTN ---
Patient Problems 1. Discharge planning 2. Medication compliance 3. Knowledge deficit 4. Lack of coping skills Progress Toward Goals Provider Present: Dr. Brett Garcia Provider Input: 05/13/2018 Per doctor patient's medication has been adjusted and Haldol Nurse(s) Present: XOCHILT Ang Nurse(s) Input: 05/13/2018, patient is childlike, requires ongoing redirection and directives Psychiatric Counselors Present: MEET Lucio Psych Therapist Input: 05/13/2018: assign counselor (Chano Jhaveri) will need to work with DCF to establish stable placement Group Spec/RT/OT/FLANNERY Present: MARTINE Carpio Group Spec/RT/OT/FLANNERY Input: 05/13/2018; patient lacks insight or ability to appropriately participate with activities Documentation Scribe: MEET Lucio Sandra LMHC May 13, 2018 09:38
[2018-05-13] MEDS: LORazepam 0.5 MG TAB PO PRN (10:48)
[2018-05-13] MEDS ORDERED: diphenhydrAMINE HCL 50 MG/ML VIAL IM ONE (13:00)
[2018-05-13] MEDS ORDERED: HALOPERIDOL LACTATE 5 MG/ML AMP IM STA (13:00)
[2018-05-13] MEDS ORDERED: LORazepam 2 MG/ML VIAL IM ONE (13:00)
[2018-05-14 06:33] VITALS: BP 96/58; PULSE 78; RESP 16; TEMP 97.8; O2SAT 98
[2018-05-14] MEDS: HALOPERIDOL 5 MG TAB PO SCH ×3 (09:17→20:12)
[2018-05-14] MEDS: TRIHEXYPHENIDYL HCL 5 MG TAB PO SCH ×2 (09:17→20:12)
[2018-05-14] MEDS: LORazepam 2 MG/ML VIAL IM PRN ×2 (09:45→19:07)
[2018-05-14 13:57] VITALS: BP 117/58; PULSE 100; RESP 18; TEMP 97.7; O2SAT 100
--- NOTE | 2018-05-14 13:58 | HHI.PYPN ---
Subjective Chief Complaint: Disorganization, self-care deficit Remarks Patient was seen and case discussed with nursing. This morning, patient was labile, paranoid and childlike with yelling and received Ativan. For this interview she has psychomotor retardation. With thought blocking. Likely responding to internal stimuli. Mental Status Examination Appearance: Disheveled Consciousness: Alert Orientation: Person Motor Activity: Other (No motoric abnormalities noted) Speech: Other (Limited language skills) Language: Other (Fairly rambling and repetitive) Fund of Knowledge: Inadequate Attention and Concentration: Inadequate Memory: Impaired Mood: Other (Childlike) Affect: Euthymic Thought Process & Associations: Other (Ongoing moderate disorganization) Thought Content: Preoccupations Hallucination Type: None Delusion Type: None Suicidal Ideation: No (No SI voiced) Homicidal Ideation: No (No HI voiced) Insight: Poor Judgment: Poor Results Vitals/IOs Vital Signs Date Time Temp Pulse Resp B/P (MAP) Pulse Ox O2 Delivery O2 Flow Rate FiO2 05/14/18 06:33 97.8 78 16 96/58 (71) 98 Assessment & Plan Problem List: (1) Schizophrenia ICD Codes: F20.9 - Schizophrenia, unspecified Status: Acute (2) Intellectual disability ICD Codes: F79 - Unspecified intellectual disabilities Assessment & Plan Continue current treatment plan Justification for Cont. Inpt. Patient would decompensate in a less restrictive setting Request HC Surrog/Guard Advoc?: Yes Problem Qualifiers (1) Schizophrenia: Qualified Codes: F20.1 - Disorganized schizophrenia Kevan Rosario DO May 14, 2018 13:58
[2018-05-14 17:52] VITALS: BP 123/67; PULSE 82; RESP 19; TEMP 97.8; O2SAT 97
[2018-05-15 05:55] VITALS: BP 98/58; PULSE 77; RESP 18; TEMP 97.9; O2SAT 97
[2018-05-15] MEDS: HALOPERIDOL 5 MG TAB PO SCH ×3 (08:44→20:59)
[2018-05-15] MEDS: TRIHEXYPHENIDYL HCL 5 MG TAB PO SCH ×2 (08:45→20:59)
--- NOTE | 2018-05-15 11:52 | HHI.PYPN ---
Subjective Chief Complaint: Disorganization, self-care deficit Remarks Patient was seen and case discussed with nursing. Patient has not had any aggressive or agitated behavior. She has not required any ETO's. She is eating well. Interactive. Though, she remains loose and internally preoccupied. Compliant with medications Mental Status Examination Appearance: Disheveled Consciousness: Alert Orientation: Person Motor Activity: Other (No motoric abnormalities noted) Speech: Other (Limited language skills) Language: Other (Fairly rambling and repetitive) Fund of Knowledge: Inadequate Attention and Concentration: Inadequate Memory: Impaired Mood: Other (Childlike) Affect: Euthymic Thought Process & Associations: Other (Ongoing moderate disorganization) Thought Content: Preoccupations Hallucination Type: None Delusion Type: Paranoid (Vigilant) Suicidal Ideation: No (No SI voiced) Homicidal Ideation: No (No HI voiced) Insight: Poor Judgment: Poor Results Vitals/IOs Vital Signs Date Time Temp Pulse Resp B/P (MAP) Pulse Ox O2 Delivery O2 Flow Rate FiO2 05/15/18 05:55 97.9 77 18 98/58 (71) 97 Assessment & Plan Problem List: (1) Schizophrenia ICD Codes: F20.9 - Schizophrenia, unspecified Status: Acute (2) Intellectual disability ICD Codes: F79 - Unspecified intellectual disabilities Assessment & Plan Continue current treatment plan Justification for Cont. Inpt. 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
[2018-05-15 17:20] VITALS: BP 98/58; PULSE 92; RESP 16; TEMP 98.2
[2018-05-15] MEDS: LORazepam 0.5 MG TAB PO PRN (20:59)
[2018-05-15] MEDS: diphenhydrAMINE HCL 50 MG CAP PO PRN (20:59)
[2018-05-16 06:20] VITALS: BP 90/49; PULSE 84; RESP 17; TEMP 97.8; O2SAT 97
[2018-05-16] MEDS: LORazepam 0.5 MG TAB PO PRN (07:48)
[2018-05-16] MEDS: TRIHEXYPHENIDYL HCL 5 MG TAB PO SCH ×2 (08:35→20:12)
[2018-05-16] MEDS: HALOPERIDOL 5 MG TAB PO SCH ×3 (08:36→20:12)
--- NOTE | 2018-05-16 11:00 | HHI.PYPN ---
Subjective Chief Complaint: Disorganization, self-care deficit Remarks Reviewed electronic medical record and discussed case with staff. Follow-up was conducted in the exam room with Misael social work case manager present. Patient is irritable somewhat labile. Very disorganized. She is discharged focused stating, "I am leaving you cannot keep me here". She continues with internal stimulation talking to herself in an angry manner. When asked if she is upset with she states "my brother". Patient becomes increasingly labile when discharge planning mentioned. Mental Status Examination Appearance: Disheveled Consciousness: Alert Orientation: Person Motor Activity: Other (No motoric abnormalities noted) Speech: Other (Limited language skills) Language: Other (Fairly rambling and repetitive) Fund of Knowledge: Inadequate Attention and Concentration: Inadequate Memory: Impaired Mood: Other (Childlike) Affect: Euthymic Thought Process & Associations: Other (Ongoing moderate disorganization) Thought Content: Preoccupations Hallucination Type: None Delusion Type: Paranoid (Vigilant) Suicidal Ideation: No (No SI voiced) Homicidal Ideation: No (No HI voiced) Insight: Poor Judgment: Poor Results Vitals/IOs Vital Signs Date Time Temp Pulse Resp B/P (MAP) Pulse Ox O2 Delivery O2 Flow Rate FiO2 05/16/18 06:20 97.8 84 17 90/49 (63) 97 Assessment & Plan Problem List: (1) Schizophrenia ICD Codes: F20.9 - Schizophrenia, unspecified Status: Acute (2) Intellectual disability ICD Codes: F79 - Unspecified intellectual disabilities Assessment & Plan Estimated LOS: Discharge planning is in progress. Continue to follow current treatment plan. May consider titrating medications up for better effect. Days Justification for Cont. Inpt. Moving this patient to a lower level of care would likely result in a decompensation. She remains irritable, internally stimulated, and labile. Request HC Surrog/Guard Advoc?: Yes Problem Qualifiers (1) Schizophrenia: Qualified Codes: F20.1 - Disorganized schizophrenia Swati Younger May 16, 2018 11:00
[2018-05-16 15:49] VITALS: BP 106/60; PULSE 99; RESP 18; TEMP 98.2; O2SAT 98
[2018-05-17 05:58] VITALS: BP 124/58; PULSE 96; RESP 18; TEMP 98.3; O2SAT 97
[2018-05-17] MEDS: HALOPERIDOL 5 MG TAB PO SCH ×3 (08:46→21:30)
[2018-05-17] MEDS: TRIHEXYPHENIDYL HCL 5 MG TAB PO SCH ×2 (08:46→21:30)
--- NOTE | 2018-05-17 13:15 | PD.TTN ---
Patient Problems 1. Discharge planning 2. Medication compliance 3. Knowledge deficit 4. Lack of coping skills Progress Toward Goals Provider Present: Dr. 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 needs to stay for further stabilization. Nurse(s) Present: XOCHILT Ang Nurse(s) Input: 05/13/2018, patient is childlike, requires ongoing redirection and directives Psychiatric Counselors Present: Mara Stewart [facility] Psych Therapist Input: 05/13/2018: assign counselor (Chano Jhaveri) will need to work with DCF to establish stable placement 05/17/18- Chano- agitated, angry, disorganized thought process. Group Spec/RT/OT/FLANNERY Present: MARTINE Carpio Group Spec/RT/OT/FLANNERY Input: 05/13/2018; patient lacks insight or ability to appropriately participate with activities 05/17/18- Jose Enrique- Isiah pt. has been unable to tolerate group activities due to behaviors. Documentation Scribe: Mara Stewart Jose Enrique Hercules May 17, 2018 13:15
[2018-05-17 17:30] VITALS: BP 133/76; PULSE 90; RESP 17; TEMP 98.2; O2SAT 99
--- NOTE | 2018-05-17 20:06 | HHI.PYPN ---
Subjective Chief Complaint: Disorganization, self-care deficit Remarks Reviewed electronic medical record and discussed case with staff. Follow-up was conducted in the hallway. Patient reports that she feels "okay". However she still internally stimulated. She reports that she does not remove how she slept and that she has not had a very good appetite. Staff do feel that she is doing somewhat better. Mental Status Examination Appearance: Disheveled Consciousness: Alert Orientation: Person Motor Activity: Other (No motoric abnormalities noted) Speech: Other (Limited language skills) Language: Other (Fairly rambling and repetitive) Fund of Knowledge: Inadequate Attention and Concentration: Inadequate Memory: Impaired Mood: Other (Childlike) Affect: Euthymic Thought Process & Associations: Other (Ongoing moderate disorganization) Thought Content: Preoccupations Hallucination Type: None Delusion Type: Paranoid (Vigilant) Suicidal Ideation: No (No SI voiced) Homicidal Ideation: No (No HI voiced) Insight: Poor Judgment: Poor Results Vitals/IOs Vital Signs Date Time Temp Pulse Resp B/P (MAP) Pulse Ox O2 Delivery O2 Flow Rate FiO2 05/17/18 17:30 98.2 90 17 133/76 (95) 99 Assessment & Plan Problem List: (1) Schizophrenia ICD Codes: F20.9 - Schizophrenia, unspecified Status: Acute (2) Intellectual disability ICD Codes: F79 - Unspecified intellectual disabilities Assessment & Plan Estimated LOS: Patient remains symptomatic with some aggression and lability noted. Not quite sure what her baseline or the hopeful outcome is at this time. However caser in to have encountered before feel that there is still room for some improvement. We will continue with current treatment plan and review medications for possible titration. Days Justification for Cont. Inpt. Moving this patient with a lower level of care would result in a decompensation she remains aggressive and labile. Request HC Surrog/Guard Advoc?: Yes Problem Qualifiers (1) Schizophrenia: Qualified Codes: F20.1 - Disorganized schizophrenia Swati Younger May 17, 2018 20:06
[2018-05-17] MEDS: diphenhydrAMINE HCL 50 MG CAP PO PRN (21:36)
[2018-05-18] MEDS: HALOPERIDOL 5 MG TAB PO SCH ×3 (08:39→21:00)
[2018-05-18] MEDS: TRIHEXYPHENIDYL HCL 5 MG TAB PO SCH ×2 (08:39→21:00)
--- NOTE | 2018-05-18 13:52 | HHI.PYPN ---
Subjective Chief Complaint: Disorganization, self-care deficit Remarks Reviewed electronic medical record and discussed case with staff. Follow up was conducted in the day room. Patient seems less irritable today. She reports that she slept well and her appetite has been good. She is still internally stimulated. Her nurse reports that she is still having periodic angry outbursts. Mental Status Examination Appearance: Disheveled Consciousness: Alert Orientation: Person Motor Activity: Other (No motoric abnormalities noted) Speech: Other (Limited language skills) Language: Other (Fairly rambling and repetitive) Fund of Knowledge: Inadequate Attention and Concentration: Inadequate Memory: Impaired Mood: Other (Childlike) Affect: Euthymic Thought Process & Associations: Other (Ongoing moderate disorganization) Thought Content: Preoccupations Hallucination Type: None Delusion Type: Paranoid (Vigilant) Suicidal Ideation: No (No SI voiced) Homicidal Ideation: No (No HI voiced) Insight: Poor Judgment: Poor Results Vitals/IOs Vital Signs Date Time Temp Pulse Resp B/P (MAP) Pulse Ox O2 Delivery O2 Flow Rate FiO2 05/17/18 17:30 98.2 90 17 133/76 (95) 99 Assessment & Plan Problem List: (1) Schizophrenia ICD Codes: F20.9 - Schizophrenia, unspecified Status: Acute (2) Intellectual disability ICD Codes: F79 - Unspecified intellectual disabilities Assessment & Plan Estimated LOS: Patient showing some slight improvement today. Continue with current treatment plan. Discharge planning in progress. days Justification for Cont. Inpt. Patient remains labile. Moving her to a less restrictive environment would likely result in decompensation. Request HC Surrog/Guard Advoc?: Yes Problem Qualifiers (1) Schizophrenia: Qualified Codes: F20.1 - Disorganized schizophrenia Swati Younger May 18, 2018 13:52
[2018-05-18 16:41] VITALS: BP 128/76; PULSE 95; RESP 17; TEMP 98; O2SAT 99
[2018-05-19 06:08] VITALS: BP 92/50; PULSE 81; RESP 15; TEMP 98.2; O2SAT 100
[2018-05-19] MEDS: TRIHEXYPHENIDYL HCL 5 MG TAB PO SCH ×2 (08:51→20:34)
[2018-05-19] MEDS: HALOPERIDOL 5 MG TAB PO SCH ×3 (08:51→20:34)
--- NOTE | 2018-05-19 17:42 | HHI.PYPN ---
Subjective Chief Complaint: Disorganization, self-care deficit Remarks Patient seen for follow, chart reviewed. Discussion wishes to reported patient is eating well, doing better but had outburst this morning with another patient over food tray. Patient was found sitting in day room eating snacks per refusing to speak to narrative writer. Patient was also noted by staff to be picking at her diaper attempting to put feces in her mouth but was redirected. Patient has significant intellectual deficit. Treatment team will attempt to have patient's family to come visit patient to assess baseline. Attempts to have patient engage in interview have been unsuccessful today. Review of Systems Except as stated in HPI: all other systems reviewed are Neg Mental Status Examination Appearance: Disheveled Consciousness: Alert Orientation: Person Motor Activity: Other (No motoric abnormalities noted) Speech: Other (Limited language skills) Language: Other (Fairly rambling and repetitive) Fund of Knowledge: Inadequate Attention and Concentration: Inadequate Memory: Impaired Mood: Other (Childlike) Affect: Flat Thought Process & Associations: Other (Ongoing moderate disorganization) Thought Content: Preoccupations Hallucination Type: None Delusion Type: Paranoid (Vigilant) Suicidal Ideation: No (No SI voiced) Homicidal Ideation: No (No HI voiced) Insight: Poor Judgment: Poor Results Vitals/IOs Vital Signs Date Time Temp Pulse Resp B/P (MAP) Pulse Ox O2 Delivery O2 Flow Rate FiO2 05/19/18 06:08 98.2 81 15 92/50 (64) 100 Assessment & Plan Problem List: (1) Schizophrenia ICD Codes: F20.9 - Schizophrenia, unspecified Status: Acute (2) Intellectual disability ICD Codes: F79 - Unspecified intellectual disabilities Assessment & Plan Patient at this time refusing to interact or engage in interview today, has concrete thought process due to intellectual deficit. Patient continues to have some disorganization as reported by staff. We will continue current treatment for now will continue monitor mood and behavior. We will have family come visit patient to assess patient's baseline as this may be current baseline despite his disorganized behavior due to cognitive deficits. Discharge planning in progress. Justification for Cont. Inpt. At risk for further decompensation if at lower level of care Discharge Planning Patient return back to her residence when psychiatrically clear. Request HC Surrog/Guard Advoc?: Yes Problem Qualifiers (1) Schizophrenia: Qualified Codes: F20.1 - Disorganized schizophrenia Martin Taylor MD May 19, 2018 17:42
[2018-05-19 17:57] VITALS: BP_SYST 106; BP_SYST 128; BP_DIAS 51; BP_DIAS 76; PULSE 95; PULSE 97; RESP 16; RESP 17; TEMP 98; TEMP 98.5; O2SAT 99
[2018-05-20 06:03] VITALS: BP 101/54; PULSE 78; RESP 16; TEMP 98.4
[2018-05-20] MEDS: HALOPERIDOL 5 MG TAB PO SCH ×3 (09:27→20:35)
[2018-05-20] MEDS: TRIHEXYPHENIDYL HCL 5 MG TAB PO SCH ×2 (09:27→20:34)
[2018-05-20 18:04] VITALS: BP 104/57; PULSE 90; RESP 17; TEMP 97.8; O2SAT 95
--- NOTE | 2018-05-20 19:07 | HHI.PYPN ---
Subjective Chief Complaint: Disorganization, self-care deficit Remarks Patient seen for follow-up, chart reviewed. Discussion nursing staff reported patient continues to talk to self, compliant with medications and yesterday was found picking attempting to eat feces from her diaper. Patient was found in day room noted B, cooperative. Patient now more amenable to interview this patient refused to speak to mortgage loan underwriter yesterday. Patient with very concrete responses due to cognitive deficits from intellectual deficit. Patient reports sleeping well tolerated medications well eating and drinking well, states that her mood has been "not too well" and when asked to elaborate patient stated that she did not want to continue interview. Review of Systems Except as stated in HPI: all other systems reviewed are Neg Mental Status Examination Appearance: Disheveled Consciousness: Alert Orientation: Person Motor Activity: Other (No motoric abnormalities noted) Speech: Other (Limited language skills) Language: Other (Fairly rambling and repetitive) Fund of Knowledge: Inadequate Attention and Concentration: Inadequate Memory: Impaired Mood: Other (Childlike) Affect: Flat Thought Process & Associations: Other (Ongoing moderate disorganization) Thought Content: Preoccupations Hallucination Type: None Delusion Type: Paranoid (Vigilant) Suicidal Ideation: No (No SI voiced) Homicidal Ideation: No (No HI voiced) Insight: Poor Judgment: Poor Results Vitals/IOs Vital Signs Date Time Temp Pulse Resp B/P (MAP) Pulse Ox O2 Delivery O2 Flow Rate FiO2 05/20/18 18:04 97.8 90 17 104/57 (73) 95 Assessment & Plan Problem List: (1) Schizophrenia ICD Codes: F20.9 - Schizophrenia, unspecified Status: Acute (2) Intellectual disability ICD Codes: F79 - Unspecified intellectual disabilities Assessment & Plan Patient this time continues with very concrete thought process due to intellectual deficits, very childlike and requiring direction poor self hygiene. Patient noted to be eating and drinking well, no behavioral disturbances recently. Patient compliant with treatment. Patient seen continuing with some disorganized behavior such as attempting to eat feces from her diaper but was redirected. Treatment team continues to attempt to contact family to assess whether patient is back at baseline. Concerns for self-care deficit seen to be ameliorating to 2 noted consistent nutritional intake but continues to have poor personal hygiene and attempting to pick at her diaper. Continue to monitor mood and behavior. Continue to encourage patient to maintain personal hygiene requiring direction. Discharge planning in progress. Justification for Cont. Inpt. At risk for further decompensation if at lower level of care Discharge Planning Patient return back to her residence was psychiatrically stable. Request HC Surrog/Guard Advoc?: Yes Problem Qualifiers (1) Schizophrenia: Qualified Codes: F20.1 - Disorganized schizophrenia Martin Taylor MD May 20, 2018 19:07
[2018-05-20] MEDS: diphenhydrAMINE HCL 50 MG CAP PO PRN (20:34)
[2018-05-20] MEDS: LORazepam 0.5 MG TAB PO PRN (20:35)
[2018-05-21 06:39] VITALS: BP 108/58; PULSE 81; RESP 17; TEMP 98; O2SAT 100
[2018-05-21] MEDS: TRIHEXYPHENIDYL HCL 5 MG TAB PO SCH ×2 (11:20→20:29)
[2018-05-21] MEDS: HALOPERIDOL 5 MG TAB PO SCH ×3 (11:20→20:29)
--- NOTE | 2018-05-21 17:01 | HHI.PYPN ---
Subjective Chief Complaint: Disorganization, self-care deficit Remarks Reviewed electronic medical record and discussed case with staff. Follow-up was conducted in the day room. Patient reports that she has been sleeping good and her appetite has been good. She denies hearing voices although she continues to be internally stimulated. Throughout the follow-up she occasionally laughed inappropriately and was observed talking to herself. Mental Status Examination Appearance: Disheveled Consciousness: Alert Orientation: Person Motor Activity: Other (No motoric abnormalities noted) Speech: Other (Limited language skills) Language: Other (Fairly rambling and repetitive) Fund of Knowledge: Inadequate Attention and Concentration: Inadequate Memory: Impaired Mood: Other (Childlike) Affect: Flat Thought Process & Associations: Other (Ongoing moderate disorganization) Thought Content: Preoccupations Hallucination Type: None Delusion Type: Paranoid (Vigilant) Suicidal Ideation: No (No SI voiced) Homicidal Ideation: No (No HI voiced) Insight: Poor Judgment: Poor Results Vitals/IOs Vital Signs Date Time Temp Pulse Resp B/P (MAP) Pulse Ox O2 Delivery O2 Flow Rate FiO2 05/21/18 06:39 98.0 81 17 108/58 (75) 100 Assessment & Plan Problem List: (1) Schizophrenia ICD Codes: F20.9 - Schizophrenia, unspecified Status: Acute (2) Intellectual disability ICD Codes: F79 - Unspecified intellectual disabilities Assessment & Plan Estimated LOS: Patient continues to show slight improvement. Continue with current treatment plan. Discharge planning in progress. Days Justification for Cont. Inpt. Moving this patient to a less restrictive environment would result in decompensation Request HC Surrog/Guard Advoc?: Yes Problem Qualifiers (1) Schizophrenia: Qualified Codes: F20.1 - Disorganized schizophrenia Swati Younger May 21, 2018 17:01
[2018-05-22 06:22] VITALS: BP 106/58; PULSE 90; RESP 16; TEMP 98.2; O2SAT 98
[2018-05-22] MEDS: TRIHEXYPHENIDYL HCL 5 MG TAB PO SCH ×2 (09:38→20:07)
--- NOTE | 2018-05-22 09:38 | HHI.PYPN ---
Subjective Chief Complaint: Disorganization, self-care deficit Remarks Reviewed electronic medical records and discussed case with staff. Staff reports that patient's outbursts have been decreasing in intensity and frequency. Follow-up was conducted in the day room. Patient reports that she has been sleeping well and her appetite has been good. Her speech seemed a little clearer and more organized today. Her mood was good and her affect is euthymic. Mental Status Examination Appearance: Disheveled Consciousness: Alert Orientation: Person Motor Activity: Other (No motoric abnormalities noted) Speech: Other (Limited language skills) Language: Other (Fairly rambling and repetitive) Fund of Knowledge: Inadequate Attention and Concentration: Inadequate Memory: Impaired Mood: Other (Childlike) Affect: Flat Thought Process & Associations: Other (Ongoing moderate disorganization) Thought Content: Preoccupations Hallucination Type: None Delusion Type: Paranoid (Vigilant) Suicidal Ideation: No (No SI voiced) Homicidal Ideation: No (No HI voiced) Insight: Poor Judgment: Poor Results Vitals/IOs Vital Signs Date Time Temp Pulse Resp B/P (MAP) Pulse Ox O2 Delivery O2 Flow Rate FiO2 05/22/18 06:22 98.2 90 16 106/58 (74) 98 Assessment & Plan Problem List: (1) Schizophrenia ICD Codes: F20.9 - Schizophrenia, unspecified Status: Acute (2) Intellectual disability ICD Codes: F79 - Unspecified intellectual disabilities Assessment & Plan Estimated LOS: Patient has shown some improvement. May be possible start looking at safe discharge options. Days Justification for Cont. Inpt. Moving this patient to a less restrictive level of care would likely result in decompensation. Request HC Surrog/Guard Advoc?: Yes Problem Qualifiers (1) Schizophrenia: Qualified Codes: F20.1 - Disorganized schizophrenia Swati Younger May 22, 2018 09:38
[2018-05-22] MEDS: HALOPERIDOL 5 MG TAB PO SCH ×3 (09:39→20:08)
[2018-05-22 16:57] VITALS: BP 104/55; PULSE 88; RESP 18; TEMP 98.2; O2SAT 98
[2018-05-23 06:39] VITALS: BP 110/55; PULSE 86; RESP 19; TEMP 98.2; O2SAT 97
[2018-05-23] MEDS: TRIHEXYPHENIDYL HCL 5 MG TAB PO SCH ×2 (09:08→20:35)
[2018-05-23] MEDS: HALOPERIDOL 5 MG TAB PO SCH ×3 (09:08→20:34)
--- NOTE | 2018-05-23 09:15 | HHI.PYPN ---
Subjective Chief Complaint: Disorganization, self-care deficit Remarks Patient seen and examined with nurse. Chart reviewed. Case discussed with nursing staff who reports patient is improving. She is having fewer episodes of calling out and has not been engaging in food stealing behaviors. She does remain fairly disorganized and childlike. On my examination today, I find the patient dozing in her room. She awakens readily and is able to answer simple questions appropriately. She denies any SI or HI. Denies any AVH. She has no signs of EPS and denies side effects from medications generally. No physical complaints. Case discussed with counselor who reports that patient's cousin works for a system of group homes that the patient may be able to go to. Given good response to Haldol and good tolerability of this agent, I have spoken with patient's sister and GA about R/B/A of Haldol decanoate. GA provides consent for initiation of Haldol decanoate. Review of Systems ROS Limitations: Poor Historian Except as stated in HPI: all other systems reviewed are Neg Mental Status Examination Appearance: Disheveled Consciousness: Alert Orientation: Person Motor Activity: Other (No hand tremor, no cogwheeling, no dystonia, no dyskinesia, no other motor abnormalities noted) Speech: Other (Limited language skills) Language: Other (Fairly rambling and repetitive) Fund of Knowledge: Inadequate Attention and Concentration: Inadequate Memory: Impaired Mood: Other (Calm) Affect: Blunt, Other (Childlike) Thought Process & Associations: Other (Ongoing moderate disorganization) Thought Content: Other (Poverty of thought) Hallucination Type: None Delusion Type: None Suicidal Ideation: No Homicidal Ideation: No Insight: Poor Judgment: Poor Results Labs Labs reviewed. No new labs. Vitals/IOs Vital Signs Date Time Temp Pulse Resp B/P (MAP) Pulse Ox O2 Delivery O2 Flow Rate FiO2 05/23/18 06:39 98.2 86 19 110/55 (73) 97 Assessment & Plan Problem List: (1) Schizophrenia ICD Codes: F20.9 - Schizophrenia, unspecified Status: Acute (2) Intellectual disability ICD Codes: F79 - Unspecified intellectual disabilities Assessment & Plan Initiate Haldol Decanoate 100 mg IM today with plans for booster dose to bring total IM dose to approximately 10 times the oral daily dose. Continue oral Haldol supplementation. Continue to monitor on the inpatient unit. Continue other medications and care as ordered. Justification for Cont. Inpt. Medication changes. Risk for decompensation in less restrictive environment. Discharge Planning Placement Request HC Surrog/Guard Advoc?: Yes Problem Qualifiers (1) Schizophrenia: Qualified Codes: F20.1 - Disorganized schizophrenia Dwaine Garcia MD May 23, 2018 09:15
[2018-05-23] MEDS ORDERED: HALOPERIDOL DECANOATE 50 MG/ML VIAL IM SCH (15:30)
[2018-05-23] MEDS ORDERED: HALOPERIDOL DECANOATE 50 MG/ML VIAL IM ONE (16:30)
[2018-05-23 17:38] VITALS: BP 95/68; PULSE 85; RESP 18; TEMP 98.1; O2SAT 98
[2018-05-24] MEDS: HALOPERIDOL 5 MG TAB PO SCH ×3 (08:32→20:43)
[2018-05-24] MEDS: TRIHEXYPHENIDYL HCL 5 MG TAB PO SCH ×2 (08:32→20:42)
--- NOTE | 2018-05-24 10:43 | HHI.PYPN ---
Subjective Chief Complaint: Disorganization, self-care deficit Remarks Patient seen and examined with counselor. Chart reviewed. Case discussed with nursing staff. No behavioral issues noted. Case discussed in treatment team. I find the patient today in the day area. She is calm, although she does rock in her chair at times. No complaints of restlessness or akathisia. She tells me "nothing is bothering me, nothing." She denies AVH. Tolerated Haldol Decanoate injection well and denies side effects from medications. No physical complaints. Review of Systems ROS Limitations: Poor Historian Except as stated in HPI: all other systems reviewed are Neg Mental Status Examination Appearance: Disheveled Consciousness: Alert Orientation: Person Motor Activity: Other (No motor abnormalities noted) Speech: Other (Limited language skills) Language: Other (Somewhat rambling) Fund of Knowledge: Inadequate Attention and Concentration: Inadequate Memory: Impaired Mood: Other (Calm) Affect: Blunt, Other (Remains childlike) Thought Process & Associations: Other (Ongoing moderate disorganization) Thought Content: Other (Ongoing poverty of thought) Hallucination Type: None Delusion Type: None Suicidal Ideation: No Homicidal Ideation: No Insight: Poor Judgment: Poor Results Labs Labs reviewed. No new labs. Vitals/IOs Vital Signs Date Time Temp Pulse Resp B/P (MAP) Pulse Ox O2 Delivery O2 Flow Rate FiO2 05/23/18 17:38 98.1 85 18 95/68 (77) 98 Assessment & Plan Problem List: (1) Schizophrenia ICD Codes: F20.9 - Schizophrenia, unspecified Status: Acute (2) Intellectual disability ICD Codes: F79 - Unspecified intellectual disabilities Assessment & Plan Continue oral Haldol supplementing Haldol Decanoate. Patient's psychosis does seem much improved with this medication. Plan for booster dose of Haldol Decanoate later in the week. Continue to monitor on the inpatient unit. Continue other medications and care as ordered. Justification for Cont. Inpt. Risk for decompensation in less restrictive environment. Discharge Planning Counselor continues to work on placement for this patient. Request HC Surrog/Guard Advoc?: Yes Problem Qualifiers (1) Schizophrenia: Qualified Codes: F20.1 - Disorganized schizophrenia Dwaine Garcia MD May 24, 2018 10:43
--- NOTE | 2018-05-24 15:57 | PD.TTN ---
Patient Problems 1. Discharge planning 2. Medication compliance 3. Knowledge deficit 4. Lack of coping skills Progress Toward Goals Provider Present: Dr. Brett Garcia Provider Input: 05/13/2018 Per doctor patient's medication has been adjusted and Haldol Zita UPHOLSTERY AUTO TRIMMER- Pt. needs to stay for further stabilization. 05/24/2018, counselor will continue to work on placement. Nurse(s) Present: XOCHILT Ang Nurse(s) Input: 05/13/2018, patient is childlike, requires ongoing redirection and directives Psychiatric Counselors Present: Chano Tellez Jr., [facility], Mara Stewart, [facility] Psych Therapist Input: 05/13/2018: assign counselor (Chano Jhaveri) will need to work with DCF to establish stable placement 05/17/18- Chano- agitated, angry, disorganized thought process. 05/24/2018, counselor spoke with the patient's cousin regarding placement in a fci. Cousin reports she is unable to assist due to the lack of [employer] instructional support services director for this case. Counselor continues to explore options, [facility] coming to assess tomorrow morning, counselor believes patient may need more structure than [facility] - and has been in touch with [facility], who is coming to interview the patient this afternoon, if accepted at [facility] patient will need Medicare switch to Medicaid long-term. Email sent to Sharon at [facility] regarding Medicaid long-term application Group Spec/RT/OT/FLANNERY Present: MARTINE Carpio Group Spec/RT/OT/FLANNERY Input: 05/13/2018; patient lacks insight or ability to appropriately participate with activities 05/17/18- Jose Enrique- Recently pt. has been unable to tolerate group activities due to behaviors. Occupational Therapist Input: Not attending groups Documentation Scribe: Mara Stewart [facility] Chano Tellez Jr, PRODUCTION MACHINE SHOP SUPERVISOR May 24, 2018 15:57
[2018-05-24 17:30] VITALS: BP 110/59; PULSE 81; RESP 17; TEMP 98.2; O2SAT 100
[2018-05-25 05:41] VITALS: BP 93/47; PULSE 81; RESP 18; TEMP 98.2
[2018-05-25] MEDS: HALOPERIDOL 5 MG TAB PO SCH ×3 (08:35→20:18)
[2018-05-25] MEDS: TRIHEXYPHENIDYL HCL 5 MG TAB PO SCH ×2 (08:36→20:17)
[2018-05-25 15:33] VITALS: BP 93/54; PULSE 76; RESP 18; TEMP 97.9; O2SAT 100
--- NOTE | 2018-05-25 17:15 | HHI.PYPN ---
Subjective Chief Complaint: Disorganization, self-care deficit Remarks Patient seen and examined with nurse. Chart reviewed. Case discussed with nursing staff. No reports of behavioral disturbance. Case discussed with counselor. On my examination today, patient is sitting in the day area eating a snack. She seems a little more dysphoric than in previous days. Possibly some mild internal preoccupation, it is difficult to tell. She does say "I don' t take Haldol no more; I take Tylenol." However, patient has been compliant with medications per nursing report. No side effects from medications. No physical complaints. Review of Systems ROS Limitations: Poor Historian Except as stated in HPI: all other systems reviewed are Neg Mental Status Examination Appearance: Other (Fair grooming and hygiene with staff assistance) Consciousness: Alert Orientation: Person Motor Activity: Other (No abnormal motor movements noted) Speech: Other (Limited language skills) Language: Other (Somewhat rambling) Fund of Knowledge: Inadequate Attention and Concentration: Inadequate Memory: Impaired Mood: Other (A little dysphoric today) Affect: Blunt Thought Process & Associations: Tangential Thought Content: Other (Ongoing poverty of thought) Hallucination Type: None (Possibly some mild internal preoccupation but no overt hallucinations) Delusion Type: None Suicidal Ideation: No Homicidal Ideation: No Insight: Poor Judgment: Poor Results Labs Labs reviewed. No new labs. Vitals/IOs Vital Signs Date Time Temp Pulse Resp B/P (MAP) Pulse Ox O2 Delivery O2 Flow Rate FiO2 05/25/18 15:33 97.9 76 18 93/54 (67) 100 Assessment & Plan Problem List: (1) Schizophrenia ICD Codes: F20.9 - Schizophrenia, unspecified Status: Acute (2) Intellectual disability ICD Codes: F79 - Unspecified intellectual disabilities Assessment & Plan Continue oral Haldol supplementing Haldol Decanoate. Plan for additional Haldol decanoate later in the week. Continue to monitor on the inpatient unit. Continue other medications and care as ordered. Justification for Cont. Inpt. Risk for decompensation in less restrictive environment. Discharge Planning Counselor continues to work on placement for this patient. Request HC Surrog/Guard Advoc?: Yes Problem Qualifiers (1) Schizophrenia: Qualified Codes: F20.1 - Disorganized schizophrenia Dwaine Garcia MD May 25, 2018 17:15
[2018-05-26 06:18] VITALS: BP 114/54; PULSE 84; RESP 16; TEMP 98; O2SAT 96
[2018-05-26] MEDS: TRIHEXYPHENIDYL HCL 5 MG TAB PO SCH ×2 (09:00→20:23)
[2018-05-26] MEDS: HALOPERIDOL 5 MG TAB PO SCH ×3 (09:26→20:23)
--- NOTE | 2018-05-26 13:00 | HHI.PYPN ---
Subjective Chief Complaint: Disorganization, self-care deficit Remarks Patient seen and examined with nurse. Chart reviewed. Case discussed with nursing staff. No behavioral issues noted. Case discussed with counselor. On my examination today, patient is calm and cooperative. She is able to provide sensible answers to my questions. No SI or HI. No AVH. Denies side effects from medications. No physical complaints. Review of Systems ROS Limitations: Poor Historian Except as stated in HPI: all other systems reviewed are Neg Mental Status Examination Appearance: Other (Fair grooming and hygiene with staff assistance) Consciousness: Alert Orientation: Person Motor Activity: Other (No motor abnormalities noted) Speech: Other (Limited language skills) Language: Other (Coherent) Fund of Knowledge: Inadequate Attention and Concentration: Inadequate Memory: Impaired Mood: Other (Calm) Affect: Blunt Thought Process & Associations: Tangential Thought Content: Other (Ongoing poverty of thought) Hallucination Type: None Delusion Type: None Suicidal Ideation: No Homicidal Ideation: No Insight: Poor Judgment: Poor Results Labs Labs reviewed. No new labs. Vitals/IOs Vital Signs Date Time Temp Pulse Resp B/P (MAP) Pulse Ox O2 Delivery O2 Flow Rate FiO2 05/26/18 06:18 98.0 84 16 114/54 (74) 96 Assessment & Plan Problem List: (1) Schizophrenia ICD Codes: F20.9 - Schizophrenia, unspecified Status: Acute (2) Intellectual disability ICD Codes: F79 - Unspecified intellectual disabilities Assessment & Plan Administer booster dose of Haldol Decanoate tomorrow morning, 200 mg IM to bring total dose to 300 mg IM. To annual oral Haldol supplementation. Continue to monitor on inpatient unit. Continue other medications and care as ordered. Justification for Cont. Inpt. Medication changes Discharge Planning Counselor informs me that efforts at placement in facility have been unsuccessful. Patient's sister is ready to resume care of patient. We will plan to discharge patient back into sister's care tomorrow. Request HC Surrog/Guard Advoc?: Yes Problem Qualifiers (1) Schizophrenia: Qualified Codes: F20.1 - Disorganized schizophrenia Dwaine Garcia MD May 26, 2018 13:00
[2018-05-26 17:58] VITALS: BP 118/64; PULSE 87; RESP 17; TEMP 98.4; O2SAT 99
[2018-05-27 06:14] VITALS: BP 97/55; PULSE 88; RESP 16; TEMP 97.4
[2018-05-27] MEDS ORDERED: HALOPERIDOL DECANOATE 50 MG/ML VIAL IM ONE (09:00)
[2018-05-27] MEDS: HALOPERIDOL 5 MG TAB PO SCH ×2 (09:29→13:24)
[2018-05-27] MEDS: TRIHEXYPHENIDYL HCL 5 MG TAB PO SCH (09:30)
[2018-05-27] MEDS ORDERED: HALO5TAB PO ×2 (10:58)
[2018-05-27] MEDS ORDERED: HALO100P IM (10:58)
[2018-05-27] MEDS ORDERED: TRIH5TAB2 PO (10:58)
--- NOTE | 2018-05-27 10:58 | HHI.DS ---
Psychiatry Discharge Summary Inpatient Psychiatric care?: Yes Advance Directive: No Reason Not Provided: Due to Patient Condition Mental Health AdvanceDirective: No Health Care Proxy: No Admission Admission Date May 04, 2018 at 12:28 Admission Diagnosis: (1) Schizophrenia ICD Code: F20.9 - Schizophrenia, unspecified (2) Intellectual disability ICD Code: F79 - Unspecified intellectual disabilities Brief History Ms. Pérez is a 32-year-old female with a history of schizophrenia and intellectual disability who presents under a [place] act by law enforcement alleging that the patient has been nonadherent with psychotropic medications and was found eating her own feces. Reviewing the electronic medical record, I note that the patient has another record under the name Teresa Pérez (same ). In this record, patient was admitted under Dr. Knight in January, and was on Haldol and Abilify at that time.Patient seen and examined with nurse. Chart reviewed. Case discussed with nursing staff who reports patient slept poorly overnight and has been internally stimulated, rocking in her room. On my examination today, patient is mute. She follows commands but will not engage in verbal interview. She does exhibit some posturing but no stereotypies. She is able to nod head yes or no to some questions. She denies AH but is non-committal about VH. Likewise, she denies SI but does not respond when I ask about HI. Psychiatric interview is quite limited because of patient' s current mental state. I am unable to obtain any meaningful past psychiatric, family, chemical dependency or social history for the same reason. Patient appears to be in no acute physical distress. The patient is a 32-year-old -[place]aced[place] woman, domiciled in [facility], single, mother of 1 kid, unemployed, with psychiatric history of schizophrenia, no significant medical history, she denies the use of illegal drugs and alcohol , consulted to me for second opinion. Psychiatric evaluation I find the patient in the recreational area of the unit. The patient is poorly cooperative , malodorous, disheveled, answering to my questions with monosyllables. The patient does report that she wants to feel better, but she does not have an insight of her psychiatric illness, she does not know what is the reason of her hospitalization. She denies suicidal enemas ideation, she denies visual and auditory hallucinations. During the evaluation the patient also presents very childish and concrete. Tobacco Use In Past 30 Days: Cigars and/or Pipe Daily Alcohol Use: Never Hospital Course Patient was admitted to a locked, inpatient psychiatric unit. Appropriate precautions were in place throughout patient's hospital stay. Patient was seen and examined on the unit by psychiatry and also visited by counselor. Psychotropic medications were adjusted. Patient responded well to Haldol and was started on Haldol decanoate. Patient had improvement in presenting psychiatric symptomatology during the course of her hospital stay although intellectual limitations remained unchanged. There was no evidence of suicidality or homicidality on the inpatient unit. Patient's behavior improved with the benefit of psychopharmacologic treatment. Counselor worked with family to try to arrange placement for this patient, but this was ultimately unsuccessful. For the time being, then, patient will return to stay with sister. Patient's cousin Santos will continue to work on placing the patient in the facility where she works. Counselor has confirmed that patient's sister is willing and able to care for the patient at this point. On the day of discharge: Patient seen and examined with nurse. Chart reviewed. Case discussed with nursing staff. No behavioral issues noted overnight. Case discussed in treatment team. On my examination today, the patient is calm and cooperative. She has no suicidal or homicidal ideation, intent or plan. No mood or psychotic symptoms. Denies side effects from medications. I did review patient's discharge psychotropic regimen with patient including the need for temporary oral supplementation of patient's Haldol Decanoate. No physical complaints. Suicide and violence risk assessment on day of discharge both suggest lower imminent risk from mental illness and the patient's level of function is appropriate for outpatient care, although I do believe she would benefit from placement in a structured living environment in the long-term. Patient is somewhat chronically unpredictable from her intellectual disability, but this would not be further ameliorated by a longer inpatient psychiatric hospital stay. Patient has maximized benefit from this inpatient psychiatric hospital stay. She will be discharged into sister's care today with psychiatric follow-up as arranged by counselor. Patient is also to follow up with primary care. Patient to return to psychiatric emergency room for any concerning symptoms as part of a general safety plan. Results Blood Pressure 97 / 55 Vital Signs Date Time Temp Pulse Resp B/P (MAP) Pulse Ox O2 Delivery O2 Flow Rate FiO2 6/29/18 06:14 97.4 88 16 97/55 (69) 05/26/18 17:58 99 Laboratory Results Test 05/06/18 08:46 Cholesterol Level 128 MG/DL (120-200) HDL Cholesterol 62.9 MG/DL (40.0-60.0) Hemoglobin A1c 5.6 % (4.3-6.0) LDL Cholesterol 50 MG/DL (0-99) Triglycerides Level 78 MG/DL (42-150) Summary of Procedures None done Imaging None done Pending results at discharge: No Medications # of Antipsychotic meds at D/C: 1 Approp Antipsych med options 1 - Minimum of three failed multiple trials of monotherapy. 2 - Documented plan to taper to monotherapy due to previous use of multiple meds OR cross-taper in progress at D/C. 3 - Documentation of augmentation of Clozapine. 4 - Justification other than those listed in allowable values 1-3, document here : Discharge Discharge Date: May 27, 2018 Discharge Diagnosis: (1) Schizophrenia Diagnosis: Principal (stabilized) ICD Code: F20.9 - Schizophrenia, unspecified Status: Acute (2) Intellectual disability Diagnosis: Secondary (chronic) ICD Code: F79 - Unspecified intellectual disabilities Pt Condition on Discharge: Stable Discharge Disposition: Discharge Home Discharge Instructions Diet Instructions: As Tolerated, No Restrictions Activities you can perform: Weight Bearing as Steven Scheduled Appointment: Juan Ross Appointment Date: May 31, 2018 Appointment Time: 7:30am New Orders: BASIC METABOLIC PROF - 1 Week New Medications: Haloperidol Decanoate Inj (Haldol Decanoate Inj) 100 Mg/Ml Inj 300 MG IM Q28D for Mental Health, #3 VIAL 0 Refills This dose of Haldol Decanoate is due on 06/20/2018. Haloperidol (Haloperidol) 5 Mg Tab 5 MG PO DAILY@1300 for Mental Health for 15 Days, TAB 1 Refill Take oral Haldol at least until your next Haldol Decanoate injection or as directed by outpatient provider. Haloperidol (Haloperidol) 5 Mg Tab 15 MG PO BID for Mental Health for 15 Days, #90 TAB 1 Refill Take oral Haldol at least until your next Haldol Decanoate injection or as directed by outpatient provider. Trihexyphenidyl (Trihexyphenidyl) 5 Mg Tab 5 MG PO BID for Side effect management for 15 Days, #30 TAB 1 Refill Discharge Time <= 30 minutes Mental Status Examination Appearance: Other (Fair grooming and hygiene) Consciousness: Alert Orientation: Person Motor Activity: Other (No abnormal motor movements noted) Speech: Other (Limited language skills) Language: Other (Coherent) Fund of Knowledge: Inadequate Attention and Concentration: Inadequate Memory: Impaired Mood: Other (Calm) Affect: Blunt Thought Process & Associations: Other (Limited but fairly linear) Thought Content: Other (Ongoing poverty of thought) Hallucination Type: None Delusion Type: None Suicidal Ideation: No Suicidal Plan: No Suicidal Intention: No Homicidal Ideation: No Homicidal Plan: No Homicidal Intention: No Insight: Poor (chronic) Judgment: Poor (chronic) Discharge/Advance Care Plan Health Problems: (1) Schizophrenia (2) Intellectual disability Goals to promote your health * To prevent worsening of your condition and complications * To maintain your health at the optimal level Directions to meet your goals Take your medications as prescribed Follow your dietary instruction Follow activity as directed Keep your appointments as scheduled Take your immunizations and boosters as scheduled If your symptoms worsen call your PCP, if no PCP go to Urgent Care Center or Emergency Room For 21/06 questions related to your inpatient stay or results of tests pending at discharge, please contact Dr. Dwaine Garcia at Smoking is Dangerous to Your Health. Avoid second hand smoking Problem Qualifiers (1) Schizophrenia: Qualified Codes: F20.1 - Disorganized schizophrenia Dwaine Garcia MD May 27, 2018 10:58
--- NOTE | 2018-05-27 11:07 | PD.TTN ---
Patient Problems 1. Discharge planning 2. Medication compliance 3. Knowledge deficit 4. Lack of coping skills Progress Toward Goals Provider Present: Dr. Brett Garcia Provider Input: 05/13/2018 Per doctor patient's medication has been adjusted and Haldol Zita MOLDING PROCESS TECHNICIAN- Pt. needs to stay for further stabilization. 05/24/2018, counselor will continue to work on placement. 05/27/2018; patient meets criteria for discharge. Dr. Garcia will sign the 1823. Nurse(s) Present: XOCHILT Ang Nurse(s) Input: 05/13/2018, patient is childlike, requires ongoing redirection and directives Psychiatric Counselors Present: Chano Tellez Jr., [facility], Mara Stewart LM Psych Therapist Input: 05/13/2018: assign counselor (Chano Jhaveri) will need to work with DCF to establish stable placement 05/17/18- Chano- agitated, angry, disorganized thought process. 05/24/2018, counselor spoke with the patient's cousin regarding placement in a intermediate. Cousin reports she is unable to assist due to the lack of [employer] child support officer for this case. Counselor continues to explore options, [facility] coming to assess tomorrow morning, counselor believes patient may need more structure than [facility] - and has been in touch with [facility], who is coming to interview the patient this afternoon, if accepted at [facility] patient will need Medicare switch to Medicaid long-term. Email sent to Sharon at [facility] regarding Medicaid long-term application. 05/27/2018, counselor established contact with both the patient's sister and cousin to coordinate discharge. Group Spec/RT/OT/FLANNERY Present: MARTINE Carpio Group Spec/RT/OT/FLANNERY Input: 05/13/2018; patient lacks insight or ability to appropriately participate with activities 05/17/18- Jose Enrique- Recently pt. has been unable to tolerate group activities due to behaviors. Occupational Therapist Input: Not attending groups 05/27/2018; patient attends select groups Documentation Scribe: MEET Lucio Lane Jr, EPIC ANALYST May 27, 2018 11:07
== END 2018-05-27 15:50 | disposition home or self-care (01) | DRG 885 ==
LOC: NEPJ 11:25 → NEDA 05-04 12:28 → H270 05-04 14:30
PROVIDERS: ADMIT Psychiatry & Neurology Psychiatry; ATTEND Psychiatry & Neurology Psychiatry
DX: F20.9 Schizophrenia, unspecified (principal); F79 Unspecified intellectual disabilities; Z91.14 Patient's other noncompliance with medication regimen
CPT/HCPCS: 80048; 80053; 80061; 80307; 82550; 82552; 83036; 84443; 84703; 85025; 93005; 99285; J1200; J1630; J1631; J2060; Q0163